=== PATIENT | female | born 1965 | race Caucasian/White ===

== ENCOUNTER 2017-11-06 06:04 | Day surgery (SDC) | payer BC | END 2017-11-06 09:06 | disposition home or self-care (01) | LOC: GIL 06:04 | DX: R19.4 Change in bowel habit (principal); D12.0 Benign neoplasm of cecum; K29.60 Other gastritis without bleeding; K21.9 Gastro-esophageal reflux disease without esophagitis; B96.81 Helicobacter pylori [H. pylori] as the cause of diseases classified elsewhere; K64.8 Other hemorrhoids; E78.5 Hyperlipidemia, unspecified | CPT/HCPCS: 43239; 84703; 87081; 88305 ==